=== PATIENT | male | born 1965 | race Caucasian/White ===

== ENCOUNTER 2019-02-05 22:22 | Emergency (ER) | payer BC ==
[~2019-02-05] VITALS: Ht 180.3 cm; Wt 86.2 kg
[~2019-02-05 22:22] MED LIST: IBUPROFEN600 MG ORAL; NKM; VALIUM5 MG PO
[2019-02-05 22:24] VITALS: BP 134/76
[2019-02-05 22:30] VITALS: BP 134/76
--- NOTE | 2019-02-05 22:30 | NUR ---
ED Nurse Note: Pt ambulated to ED from home c/o buring with urination and pink/red urine for a few days, denies trauma or fever. VSS
--- NOTE | 2019-02-05 22:42 | Emergency Room Report ---
History of Present Illness General Chief Complaint: Male Urogenital Problems Source: Patient Present Illness HPI 53-year-old male, presents with dysuria x2 days no recent sexual partners no discharge, he noticed some hematuria, pain with urination, no aggravating relieving factors severity is mild, sensation is burning started 2 days prior to arrival intermittent symptoms Non-smoker Allergies: Coded Allergies: No Known Allergies (Unverified , 11/03/12) Patient History Past Medical History: see triage record Reviewed Nursing Documentation: PMH: Agreed; PSxH: Agreed Nursing Documentation-PMH Past Medical History: No Stated History Review of Systems All Other Systems: negative except mentioned in HPI Physical Exam Vital Signs Date Time Temp Pulse Resp B/P (MAP) Pulse Ox O2 Delivery O2 Flow Rate FiO2 02/05/19 22:24 98.1 92 16 134/76 (95) 96 Room Air General Appearance: well appearing, no apparent distress Head: normocephalic, atraumatic ENT: hearing grossly normal, normal voice Neck: full range of motion, supple Respiratory: no respiratory distress, speaking full sentences Gastrointestinal: non tender, soft, other - Point of Care ultrasound shows abdominal aorta less than 3 cm Neurologic: alert, normal gait Psychiatric: mood/affect normal Skin: no rash Medical Decision Making Diagnostic Impression: Primary Impression: UTI (urinary tract infection) Qualified Codes: N30.01 - Acute cystitis with hematuria ER Course 53-year-old male presents with hematuria, will treat for UTI disposition home with return precautions follow-up with urology considered AAA, considered uti, considered bladder cancer Last Vital Signs Date Time Temp Pulse Resp B/P (MAP) Pulse Ox O2 Delivery O2 Flow Rate FiO2 02/05/19 22:24 98.1 92 16 134/76 (95) 96 Room Air Disposition: HOME, SELF-CARE Condition: Stable Scripts Cephalexin* (KEFLEX*) 500 Mg Tablet 500 MG ORAL EVERY 6 HOURS, #28 CAP Prov: Niko Danielson MD 02/05/19 Referrals: [facility] Patient Instructions: Urinary Tract Infection Additional Instructions: The patient was provided with discharge instructions, notified to follow-up with a primary care doctor and or specialist in the next 24-48 hours, and to return to the ED if they have worsening of their symptoms. Please note that this report is being documented using DRAGON technology. This can lead to erroneous entry secondary to incorrect interpretation by the dictating instrument. PLEASE FOLLOW-UP WITH UROLOGY Niko Danielson MD Feb 05, 2019 22:41
[2019-02-05] MEDS ORDERED: CEPHALEXIN500 M1 ORAL (22:44)
[2019-02-05] MEDS ORDERED: Cephalexin 500mg cap ORAL ONE (22:45)
--- NOTE | 2019-02-05 22:45 | NUR ---
ER DISCHARGE NOTE: Patient is cleared to be discharged per ERMD, pt is aox4, on room air, with stable vital signs. pt was given dc and prescription instructions, pt was able to verbalize understanding, pt id band removed. pt is able to ambulate with steady gait. pt took all belongings.
[2019-02-05 22:51] LABS: APPEARANCE,URINE CLOUDY; BILIRUBIN, URINE NEGATIVE (NEGATIVE); COLOR,URINE PALE YELLOW; GLUCOSE, URINE (UA) NEGATIVE (NEGATIVE); KETONES,URINE NEGATIVE (NEGATIVE); LEUKOCYTE ESTERASE ,URINE 3+ (NEGATIVE); NITRITE,URINE NEGATIVE (NEGATIVE); PH,URINE 6.5 (4.5-8.0); PROTEIN,URINE 3+ (NEGATIVE); UROBILINOGEN,URINE NORMAL MG/DL (0.0-1.0)
== END 2019-02-05 22:45 | disposition home or self-care (01) ==
LOC: EMR 22:45
DX: N30.01 Acute cystitis with hematuria (principal)
CPT/HCPCS: 81003; 87086; 87181; 99283